=== PATIENT | female | born 1955 | race Hispanic/Latino ===

== ENCOUNTER → 2018-01-30 | Outpatient (CLI) | payer OTHER ==
[~2018-01-30] MED LIST: GADOBENATE DIMEGLUMINE 1 ML IV ONE
[2018-01-30 10:55] LABS: BLOOD UREA NITROGEN 15 mg/dL (7-26); BUN/CREATININE RATIO 16 (6-25); CREATININE, SERUM 0.94 mg/dL (0.57-1.11); EST GLOMERULAR FILTRATION RATE > 60 ML/MIN (60-)
--- NOTE | 2018-01-30 15:18 | Diagnostic Imaging Report ---
MRI abdomen CPT code: 92109 Indication: Complex renal cyst, history of left renal calculi Technique: Multiplanar, multi sequential images of the abdomen of the abdomen were obtained before and after the administration of 15 cc of gadolinium. Diffusion and subtraction sequences were performed. Renal mass protocol was utilized. Comparison: Contrast-enhanced CT abdomen/pelvis 06/03/2013 Findings: Lung bases: Clear. Liver: Mild loss in signal on opposed phase sequence consistent with steatosis. No evidence of mass. Gallbladder: Absent. Biliary tree: No biliary ductal dilatation Pancreas: Normal T1 and T2 signal without mass or ductal dilatation. Spleen: Normal size and signal without mass. Adrenal glands: No mass Kidneys: Right: Normal size. High T2, low T1 signal lesion in the anterior interpolar cortex measures 1.3 x 1.3 x 1.5 cm. This lesion has low T1 signal but does exhibit uniform enhancement after contrast administration. This is confirmed on subtraction sequences. There are no additional renal masses. No hydronephrosis. Left: Diminutive with multiple scars. Multiple high T2 signal foci scattered throughout the parenchyma measure up to 1.2 x 1.4 cm. There is no increased T1 signal. No evidence of enhancement. Potential enhancing mass in the upper pole (series 10, image 64) corresponds to normal tissue on coronal T2-weighted sequences (series 3 and 4). Similar-appearing solid enhancing tissue in the lower pole (series 10, image 78) corresponds to normal renal parenchyma on series 3 and series 4. No hydronephrosis. Lymph nodes: No enlarged periaortic or abdominal lymph nodes Bowel: The stomach and visualized small bowel and large bowel are normal in diameter with normal wall thickness. Vasculature: The infrarenal aorta is mildly ectatic with a maximum diameter of 1.8 x 1.6 cm. Single arteries supply each kidney. The renal veins are widely patent. No filling defects in the IVC. Bones: Normal marrow signal. No focal osseous lesions. IMPRESSION: 1. Solid, enhancing mass in the anterior interpolar cortex of the right kidney is suggestive of renal cell carcinoma. No evidence of vascular invasion or metastasis. 2. Atrophy and scarring of the left kidney containing multiple cysts. 3. Mild hepatic steatosis. Signed by: Dr. Malena Hutton MD on 01/30/2018 3:14 PM
== END ==
LOC: MRI 10:16
PROVIDERS: ATTEND Family Medicine
DX: N28.1 Cyst of kidney, acquired (principal)
CPT/HCPCS: 36415; 74183; 82565; 84520